=== PATIENT | female | born 1995 | race Caucasian/White ===

== ENCOUNTER 2016-09-06 00:51 | Emergency (ER) | payer OTHER ==
[~2016-09-06] VITALS: Ht 152.4 cm; Wt 67.0 kg
[~2016-09-06 00:51] MED LIST: AMO500 PO; IBUP-1542 PO
[2016-09-06 00:56] VITALS: Ht 152.4 cm; Wt 67.0 kg
[2016-09-06] MEDS ORDERED: LIDO20SO19 MM (04:41)
[2016-09-06 04:45] VITALS: BP 125/86; PULSE 75; RESP 20; TEMP 98.4
--- NOTE | 2016-09-06 05:14 | ERD ---
ER Documentation Chief Complaint Date/Time DATE: 09/06/16 TIME: 05:11 Chief Complaint sore throat x 2 weeks HPI This patient is a 21-year-old female with no significant medical history presenting to the emergency department for sore throat ongoing for the past 2 weeks. Patient states her symptoms are worsening. She has not been able to eat or drink too much for the past 2 days secondary to pain. The patient is taken no medications for relief of her symptoms. The patient denies fevers, chills, or other symptoms at this time. ROS All systems reviewed and are negative except as per history of present illness. Medications Home Meds Active Scripts Lidocaine (Lidocaine Viscous) 100 Ml Soln, 5 ML MM TID for PAIN, #1 BOTTLE Prov:PRANAY ARMENTA PA-C 09/06/16 Ibuprofen* (Motrin*) 600 Mg Tab, 600 MG PO Q6H Y for PAIN AND OR ELEVATED TEMP, #30 TAB Prov:ANGEL ZAMORA [employer] 07/18/15 Amoxicillin* (Amoxicillin*) 500 Mg Cap, 500 MG PO TID for 10 Days, CAP Prov:ANGEL ZAMORA [employer]D MANAGER 07/18/15 Reported Medications [none] Unknown Strength No Conflict Check 07/18/15 Allergies Allergies: Coded Allergies: No Known Drug Allergies (Verified Allergy, Mild, 05/09/15) PMhx/Soc Medical and Surgical Hx: pt denies Medical Hx History of Surgery: Yes (d&c) Anesthesia Reaction: No Hx Neurological Disorder: No Hx Respiratory Disorders: No Hx Cardiac Disorders: No Hx Psychiatric Problems: No Hx Miscellaneous Medical Probl: No Hx Alcohol Use: No Hx Substance Use: No Hx Tobacco Use: No Smoking Status: Never smoker FmHx Noncontributory for chief complaint Physical Exam Vitals Vital Signs Date Time Temp Pulse Resp B/P Pulse Ox O2 Delivery O2 Flow Rate FiO2 09/06/16 04:45 98.4 75 20 125/86 98 Room Air 09/06/16 00:56 98.7 81 20 122/82 98 Physical Exam Const: Patient is resting comfortably in no acute distress. Head: Atraumatic Eyes: Normal Conjunctiva ENT: Normal External Ears, Nose and Mouth. There is mild tonsillar erythema but no hypertrophy or exudate is noted. Neck: Full range of motion..~ No meningismus. Resp: Clear to auscultation bilaterally Cardio: Regular rate and rhythm, no murmurs Abd: Soft, non tender, non distended. Normal bowel sounds Skin: No petechiae or rashes Back: No midline or flank tenderness Ext: No cyanosis, or edema Neur: Awake and alert Psych: Normal Mood and Affect Procedures/MDM 21-year-old female presents secondary to complaints of sore throat for the past 2 weeks. Physical examination the patient's vitals are within normal limits. The patient is afebrile. There is no tonsillar hypertrophy or exudate present. I have very low suspicion for strep pharyngitis. I will suspicion of retropharyngeal abscess, peritonsillar abscess, or other emergent conditions. The patient is stable for outpatient management with a prescription for viscous lidocaine to gargle with and spit out only as needed for severe throat pain. The patient was advised to follow-up with her primary care physician. The patient understands and agrees with the discharge plan and diagnosis. All questions and concerns were addressed. Departure Diagnosis: Primary Impression: Sore throat Condition: Fair Patient Instructions: When You Have a Sore Throat, Self-Care for Sore Throats Referrals: LENNOX HILLIARD (PCP) Additional Instructions: Follow-up with your primary care physician within 1 week. Return to the emergency department immediately should you have any new or worsening symptoms, uncontrolled fevers, or other unexplained symptoms. Take all medications as directed. PRANAY ARMENTA PA-C Sep 06, 2016 05:14
== END 2016-09-06 04:48 | disposition home or self-care (01) ==
LOC: FTE 00:51
DX: J02.9 Acute pharyngitis, unspecified (principal)
CPT/HCPCS: 99283

== ENCOUNTER 2017-09-12 18:11 | Emergency (ER) | END 2017-09-12 20:11 | disposition home or self-care (01) ==